=== PATIENT | male | born 1965 | race Caucasian/White ===

== ENCOUNTER → 2020-10-14 | Outpatient (CLI) | payer BC ==
--- NOTE | 2020-10-14 09:54 | Diagnostic Imaging Report ---
PROCEDURE: MR imaging cervical spine without contrast. TECHNIQUE: Multiplanar, multisequence MR imaging of the cervical spine was performed without contrast. INDICATION: Decreased range of motion in the left upper extremity. FINDINGS: The cervical spinal cord has normal volume, morphology, and signal intensity. No paraspinal mass, hemorrhage, or fluid collection. The ligamentous structures are intact. The vertebral statures are normal. The marrow signal intensity is normal. The alignment is anatomic. The craniocervical relationship at the C1-C2 level appears normal without stenosis. C2-C3: Mild anterior osteophyte/disc material at this level is present but no canal or foraminal stenosis. C3-C4: There is disc desiccation, stature loss, and bulging anterior greater than posterior disc material and uncovertebral joint spurring resulting in mild left foraminal stenosis. C4-C5: Disc desiccation, stature loss, bulge, and endplate osteophytes result in a moderate magnitude of canal stenosis with moderate severity bi-foraminal narrowing. No cord compression. C5-C6: Osteophyte/disc material, anterior greater than posterior, is present. There is hypertrophic facet arthrosis with uncovertebral joint spurring. The constellation of findings results in a moderate degree of bi-foraminal narrowing and mild to moderate canal stenosis. C6-C7: There is no substantial canal, foraminal, or recess stenosis. C7-T1: This level and disc are normal. IMPRESSION: Mid to lower cervical spondylosis and facet arthrosis with multilevel mild to moderate canal and foraminal stenoses. Normal cord. Normal alignment. No acute bony abnormality. Dictated by: Dictated on workstation # [id number]
== END ==
LOC: RAD 08:45
PROVIDERS: ATTEND Nurse Practitioner Family
DX: M47.22 Other spondylosis with radiculopathy, cervical region (principal); M50.11 Cervical disc disorder with radiculopathy, high cervical region; M50.121 Cervical disc disorder at C4-C5 level with radiculopathy; M48.02 Spinal stenosis, cervical region; M25.78 Osteophyte, vertebrae
CPT/HCPCS: 72141

== ENCOUNTER → 2020-10-23 | Outpatient (CLI) | payer BC ==
--- NOTE | 2020-10-23 12:06 | Diagnostic Imaging Report ---
PROCEDURE: MRI left upper extremity without contrast. TECHNIQUE: Multiplanar, multisequence non contrast-enhanced MRI of the left upper extremity was accomplished. INDICATION: Shoulder pain, unable to raise shoulder. COMPARISON: There are no prior studies available for comparison. FINDINGS: On the STIR coronal series, there are small areas of increased signal within the substance of the rotator cuff. These findings are more likely due to tendinosis than to a tear. The supraspinous muscle itself is not retracted or bunched. There is considerable hypertrophy of the acromioclavicular joint. This does result in some narrowing of the outlet for the supraspinous muscle. There is also a small amount of fluid in the subacromial bursa and this does suggest an element of mild bursitis is present. The biceps tendon and the subscapularis tendon are intact. The labrum is thinned centrally and probably slightly torn on a degenerative basis. There is no acute labral tear identified. There is no evidence for a joint effusion. There is no abnormal signal arising from the osseous structures to suggest bone edema or a fracture. IMPRESSION: 1. The small areas of altered signal within the rotator cuff are more likely due to tendinosis than to a partial tear. The supraspinous muscle is not retracted or bunched. 2. There is considerable hypertrophy of the acromioclavicular joint and this does result in some narrowing of the outlet for the supraspinous muscle. The fluid in the subacromial bursa also suggests an element of mild bursitis to be present. 3. The labrum is somewhat thinned centrally and is probably slightly torn on a degenerative basis. For the most part, the labrum seems to be intact. 4. There is no acute bony abnormality identified. Dictated by: Dictated on workstation # [id number]
== END ==
LOC: RAD 09:23
PROVIDERS: ATTEND Nurse Practitioner Family
DX: S46.012D Strain of muscle(s) and tendon(s) of the rotator cuff of left shoulder, subsequent encounter (principal); X58.XXXD Exposure to other specified factors, subsequent encounter
CPT/HCPCS: 73221

== ENCOUNTER 2021-12-26 11:40 | Inpatient (IN) | payer BC ==
[~2021-12-26] VITALS: Ht 187.9 cm; Wt 127.0 kg
[2021-12-26 12:43] LABS: BASOPHILS % (AUTO) 0 % (0-10); EOSINOPHILS # (AUTO) 0.2 10^3/uL (0.0-0.3); EOSINOPHILS % (AUTO) 1 % (0-10); HEMATOCRIT 38 % (40-54); HEMOGLOBIN 13.1 g/dL (13.3-17.7); LYMPHOCYTES # (AUTO) 1.2 10^3/uL (1.0-4.0); LYMPHOCYTES % (AUTO) 9 % (12-44); MEAN CORPUSCULAR HEMOGLOBIN 30 pg (25-34); MEAN CORPUSCULAR HGB CONC 34 g/dL (32-36); MEAN CORPUSCULAR VOLUME 88 fL (80-99); MEAN PLATELET VOLUME 10.1 fL (9.0-12.2); MONOCYTES # (AUTO) 1.1 10^3/uL (0.0-1.0); MONOCYTES % (AUTO) 8 % (0-12); NEUTROPHILS # (AUTO) 10.6 10^3/uL (1.8-7.8); NEUTROPHILS % (AUTO) 81 % (42-75); PLATELET COUNT 274 10^3/uL (130-400); WHITE BLOOD COUNT 13.1 10^3/uL (4.3-11.0)
--- NOTE | 2021-12-26 12:53 | ED General ---
General Chief Complaint: Skin/Wound Problems Stated Complaint: L FOOT CELLULITIS Source of Information: Patient Exam Limitations: No Limitations History of Present Illness Date Seen by Provider: Dec 26, 2021 Time Seen by Provider: 11:46 Initial Comments Here with left foot cellulitis from wound to the great toe that is on the medial aspect and on the volar aspect. Seen by Dr. Otto earlier this week and it has gotten worse despite oral antibiotics. Went to [place] today for evaluation and they transferred him here. He did come by POV. Denies fever chills. Denies nausea, vomiting or diarrhea. He did not have the labs drawn there. Case was discussed with Dr. Otto who will see him in the hospital as well as Dr. Ndiaye who will admit that patient does not have labs done yet so we will do that here. He denies other concerns. Does have history of significant cellulitis requiring ICU stay to the right foot and leg a year ago. He states this 1 was not as bad. He is accompanied by his . Timing/Duration: 1 Week, Getting Worse Severity: Moderate Modifying Factors: improves with Immobilization, improves with Rest Associated Systoms: No Chest Pain, No Cough, No Fever/Chills, No Nausea/Vomiting, No Shortness of Air, No Weakness Allergies and Home Medications Allergies Coded Allergies: No Known Drug Allergies (Unverified , 12/26/21) Patient Home Medication List Home Medication List Reviewed: Yes Review of Systems Review of Systems Constitutional: see HPI; No chills, No fever EENTM: No nose congestion, No throat pain Respiratory: No cough, No short of breath Cardiovascular: No chest pain, No edema Gastrointestinal: No nausea, No vomiting Musculoskeletal: joint pain, muscle pain Skin: change in color, lesions Psychiatric/Neurological: No Symptoms Reported All Other Systems Reviewed Negative Unless Noted: Yes Past Zxlokbl-Umqzfs-Abdlfw Hx Patient Social History Tobacco Use?: No Substance use?: No Alcohol Use?: No Past Medical History Surgeries: Yes (Ablation) Orthopedic Respiratory: No Cardiac: Yes Atrial Fibrillation, Hypertension Neurological: No Genitourinary: No Gastrointestinal: No Musculoskeletal: Yes Endocrine: Yes Diabetes, Insulin dep Family Medical History Reviewed Nursing Family Hx No Pertinent Family Hx Physical Exam-Suspected Sepsis Physical Exam Vital Signs Capillary Refill : Height, Weight, BMI Height: '" Weight: lbs. oz. kg; BMI Method: General Appearance: No Apparent Distress, WD/WN HEENT: PERRL/EOMI, Pharynx Normal Neck: Non Tender, Supple Respiratory: Lungs Clear, Normal Breath Sounds Cardiovascular: Regular Rate, Rhythm Gastrointestinal: Non Tender, Soft Back: Normal Inspection, No CVA Tenderness, No Vertebral Tenderness Extremity: Normal Range of Motion, Non Tender, Other (Redness, swelling and wounds to the left foot as described below) Neurologic/Psychiatric: Alert, Normal Mood/Affect Skin: warm/dry, ulcerations (Left great toe), other (Left great toe with wound to the medial aspect and on the sole at the area of the distal phalanx. Purulent drainage from the medial wound. Redness and swelling extends from toe to the ankle over the medial aspect and dorsal aspect of the foot. Not significantly tender.) Progress/Results/Core Measures Suspected Sepsis SIRS Temperature: Pulse: Respiratory Rate: Laboratory Tests 12/26/21 12:30: White Blood Count 13.1H Blood Pressure / Mean: Laboratory Tests 12/26/21 12:30: Creatinine 0.78, INR Comment 1.2, Platelet Count 274, Total Bilirubin 1.4H Results/Orders Lab Results Laboratory Tests Test 12/26/21 12:30 Range/Units White Blood Count 13.1 H 4.3-11.0 10^3/uL Red Blood Count 4.39 4.30-5.52 10^6/uL Hemoglobin 13.1 L 13.3-17.7 g/dL Hematocrit 38 L 40-54 % Mean Corpuscular Volume 88 80-99 fL Mean Corpuscular Hemoglobin 30 25-34 pg Mean Corpuscular Hemoglobin Concent 34 32-36 g/dL Red Cell Distribution Width 13.2 10.0-14.5 % Platelet Count 274 130-400 10^3/uL Mean Platelet Volume 10.1 9.0-12.2 fL Immature Granulocyte % (Auto) 1 % Neutrophils (%) (Auto) 81 H 42-75 % Lymphocytes (%) (Auto) 9 L 12-44 % Monocytes (%) (Auto) 8 0-12 % Eosinophils (%) (Auto) 1 0-10 % Basophils (%) (Auto) 0 0-10 % Neutrophils # (Auto) 10.6 H 1.8-7.8 10^3/uL Lymphocytes # (Auto) 1.2 1.0-4.0 10^3/uL Monocytes # (Auto) 1.1 H 0.0-1.0 10^3/uL Eosinophils # (Auto) 0.2 0.0-0.3 10^3/uL Basophils # (Auto) 0.0 0.0-0.1 10^3/uL Immature Granulocyte # (Auto) 0.1 0.0-0.1 10^3/uL Prothrombin Time 15.4 H 12.2-14.7 SEC INR Comment 1.2 0.8-1.4 Activated Partial Thromboplast Time 40 H 24-35 SEC Sodium Level 138 135-145 MMOL/L Potassium Level 3.7 3.6-5.0 MMOL/L Chloride Level 102 98-107 MMOL/L Carbon Dioxide Level 22 21-32 MMOL/L Anion Gap 14 5-14 MMOL/L Blood Urea Nitrogen 9 7-18 MG/DL Creatinine 0.78 0.60-1.30 MG/DL Estimat Glomerular Filtration Rate 105 BUN/Creatinine Ratio 12 Glucose Level 247 H 70-105 MG/DL Calcium Level 9.3 8.5-10.1 MG/DL Corrected Calcium 9.5 8.5-10.1 MG/DL Total Bilirubin 1.4 H 0.1-1.0 MG/DL Aspartate Amino Transf (AST/SGOT) 13 5-34 U/L Alanine Aminotransferase (ALT/SGPT) 25 0-55 U/L Alkaline Phosphatase 78 40-136 U/L C-Reactive Protein High Sensitivity 28.50 H 0.00-0.50 MG/DL Total Protein 7.1 6.4-8.2 GM/DL Albumin 3.8 3.2-4.5 GM/DL Procalcitonin 0.20 H <0.10 NG/ML My Orders Orders - BARBARA OLIVO MD Cbc With Automated Diff (12/26/21 11:45) Comprehensive Metabolic Panel (12/26/21 11:45) Blood Culture (12/26/21 11:45) Sputum Culture (12/26/21 11:45) Protime With Inr (12/26/21 11:45) Partial Thromboplastin Time (12/26/21 11:45) Ed Iv/Invasive Line Start (12/26/21 11:45) Vital Signs Adult Sepsis Patie Q15M (12/26/21 11:45) Remove Rings In Anticipation O (4/10/22 11:45) Lactic Acid Analyzer (12/26/21 11:45) Hs C Reactive Protein (12/26/21 11:45) Procalcitonin (Pct) (12/26/21 11:45) Foot, Left, 3 Views (12/26/21 12:35) Wound Culture (12/26/21 12:30) Piperacillin Sodium/Tazobactam (Zosyn Vi (12/26/21 14:00) Vancomycin Injection (Vancomycin Injecti (12/26/21 14:00) Ed Admission (Communication) (12/26/21 13:58) Vital Signs/I&O Capillary Refill : Progress Note : Progress Note Seen and evaluated. Sepsis protocol initiated. Wound culture from left great toe. X-ray left foot ordered. Monitor patient. 1353: I did discuss the case with Dr. Ndiaye and discussed findings up to now. We will initiate Zosyn 4.5 g IV as well as vancomycin 2 g IV and admit. She will discuss case with Dr. Otto. Findings and concerns discussed with patient and family who agree with plan. Diagnostic Imaging Diagonstic Imaging: Xray Plain Films/CT/US/NM/MRI: other Comments [facility], [place] NAME: AMBER MEMBR[facility] REC#: [id number] PT STATUS: REG ER : 05/27/1970 PHYSICIAN: BARBARA OLIVO MD ADMIT DATE: 12/26/21/ER Draft Date of Exam:12/26/21 CT HEAD WO-R/O STROKE PROCEDURE: CT head wo r/o stroke. TECHNIQUE: Multiple contiguous axial images were obtained through the brain without the use of intravenous contrast. Auto Exposure Controls were utilized during the CT exam to meet ALARA standards for radiation dose reduction. INDICATION: Stroke FINDINGS: The ventricles and sulci are within normal limits. There is no hydrocephalus or cerebral edema. There is no midline shift or mass effect. There is no intracranial mass, hemorrhage, or extra-axial fluid collection. The visualized paranasal sinuses and mastoid air cells are clear. There are no regional areas of decreased attenuation appreciated to suggest an acute CVA. IMPRESSION: No acute intracranial abnormality. Dictated on workstation # [id number] Dict: 12/26/21 1247 Trans: 12/26/21 1248 [facility] [id number] Interpreted by: GREG GONZALES MD Electronically signed by: Departure Communication (Admissions) Time/Spoke to Admitting Phy: 13:53 Impression Primary Impression: Diabetic foot ulcer Qualified Codes: E10.621 - Type 1 diabetes mellitus with foot ulcer; L97.522 - Non-pressure chronic ulcer of other part of left foot with fat layer exposed Additional Impression: Sepsis Qualified Codes: A41.9 - Sepsis, unspecified organism Disposition: ADMITTED INPATIENT Condition: Stable Admissions Decision to Admit Reason: Admit from ER (General) Decision to Admit/Date: Dec 26, 2021 Time/Decision to Admit Time: 13:53 Departure-Patient Inst. Referrals: SILVIA PELAEZ DO (PCP/Family) Primary Care Physician BARBARA OLIVO MD Dec 26, 2021 12:53
[2021-12-26 12:55] LABS: ALBUMIN 3.8 GM/DL (3.2-4.5); POTASSIUM 3.7 MMOL/L (3.6-5.0)
[2021-12-26 12:56] LABS: CALCIUM 9.3 MG/DL (8.5-10.1)
[2021-12-26 12:58] LABS: INR 1.2 (0.8-1.4); PROTHROMBIN TIME PATIENT 15.4 SEC (12.2-14.7); TOTAL PROTEIN 7.1 GM/DL (6.4-8.2)
[2021-12-26 12:59] LABS: BILIRUBIN,TOTAL 1.4 MG/DL (0.1-1.0)
[2021-12-26 13:01] LABS: CREATININE SERUM 0.78 MG/DL (0.60-1.30)
--- NOTE | 2021-12-26 13:11 | Diagnostic Imaging Report ---
INDICATION: Pain. 3 views of the left foot were obtained. FINDINGS: The alignment is normal. There are degenerative changes. No fracture or dislocation. Soft tissues are unremarkable. IMPRESSION: Degenerative changes, however no acute fracture or dislocation. Dictated by: Dictated on workstation # [id number]
[2021-12-26] MEDS ORDERED: PIPERACILLIN SODIUM/TAZOBACTAM 4.5 GM in NS (IVPB) 100 ML IV ONE (14:00)
[2021-12-26] MEDS ORDERED: VANCOMYCIN INJECTION 1,000 MG in NS (IVPB) 250 ML IV SCH (14:00)
[2021-12-26] MEDS ORDERED: VANCOMYCIN INJECTION 2,000 MG in NS IV 500 ML 500 ML IV SCH (14:15)
[2021-12-26] MEDS ORDERED: polyethylene glycoL POWDER 17 GM (MIRALAX) PACK PO PRN (15:15)
[2021-12-26] MEDS ORDERED: ACETAMINOPHEN 325 MG TABLET PO PRN (15:15)
[2021-12-26] MEDS ORDERED: VANCOMYCIN INJECTION 0.1 MG in NS (IVPB) 250 ML IV SCH (15:15)
[2021-12-26] MEDS ORDERED: MELATONIN 3 MG TABLET PO PRN (15:15)
[2021-12-26] MEDS ORDERED: ONDANSETRON 4 MG/2 ML (SDV) Z0FRAN IV PRN (15:15)
[2021-12-26] MEDS ORDERED: CALCIUM CARBONATE 500 MG (TUMS) TAB.CHEW PO PRN (15:15)
[2021-12-26 15:30] VITALS: BP 180/85
[2021-12-26] MEDS ORDERED: AUGMENTIN 875/125 PO (16:02)
[2021-12-26] MEDS ORDERED: CLIN150C20 PO (16:03)
[2021-12-26] MEDS ORDERED: INSU100I23 SQ (16:04)
[2021-12-26] MEDS ORDERED: APIX5TAB PO (16:04)
[2021-12-26] MEDS ORDERED: ATOR80TA76 PO (16:05)
[2021-12-26] MEDS ORDERED: INSU300I SQ (16:07)
[2021-12-26] MEDS ORDERED: GLIP10TA24 PO (16:07)
[2021-12-26] MEDS ORDERED: DILT300C52 PO (16:08)
[2021-12-26] MEDS ORDERED: PREG100C55 PO (16:09)
[2021-12-26] MEDS ORDERED: SITA1TAB2 PO (16:09)
[2021-12-26] MEDS: inSUlin ASPART (NovoLOG) 1 UNIT/0.01 ML (CHARGE PER UNIT) SC SCH ×2 (16:11→20:54)
[2021-12-26] MEDS ORDERED: hydrALAZINE (APESOLINE) 20 MG/ML VIAL IV PRN (18:45)
[2021-12-26 20:00] VITALS: BP 95/72
[2021-12-26] MEDS: PREGABALIN 100 MG (LYRICA) CAPSULE PO SCH (20:54)
[2021-12-26] MEDS: PIPERACILLIN SODIUM/TAZOBACTAM 4.5 GM in NS (IVPB) 100 ML IV SCH (22:39)
[2021-12-27] VITALS (12 sets, daily range): BP systolic 115–177; BP diastolic 70–105
[2021-12-27] MEDS: inSUlin ASPART (NovoLOG) 1 UNIT/0.01 ML (CHARGE PER UNIT) SC SCH ×4 (05:26→20:14)
[2021-12-27] MEDS: inSUlin ASPART (NovoLOG) 1 UNIT/0.01 ML (CHARGE PER UNIT) SQ SCH ×3 (05:26→17:35)
[2021-12-27] MEDS: PIPERACILLIN SODIUM/TAZOBACTAM 4.5 GM in NS (IVPB) 100 ML IV SCH ×3 (05:45→23:17)
[2021-12-27 06:08] LABS: HEMATOCRIT 36 % (40-54); HEMOGLOBIN 12.1 g/dL (13.3-17.7); MEAN CORPUSCULAR HEMOGLOBIN 29 pg (25-34); MEAN CORPUSCULAR HGB CONC 34 g/dL (32-36); MEAN CORPUSCULAR VOLUME 87 fL (80-99); PLATELET COUNT 287 10^3/uL (130-400); WHITE BLOOD COUNT 10.8 10^3/uL (4.3-11.0)
[2021-12-27 06:31] LABS: CALCIUM 8.4 MG/DL (8.5-10.1); CREATININE SERUM 0.82 MG/DL (0.60-1.30); POTASSIUM 3.4 MMOL/L (3.6-5.0)
[2021-12-27] MEDS ORDERED: fentaNYL INJ 100 MCG/2 ML AMP ONE (07:01)
[2021-12-27] MEDS ORDERED: ONDANSETRON 4 MG/2 ML (SDV) Z0FRAN ONE (07:01)
[2021-12-27] MEDS ORDERED: LIDOCAINE PF 2% 5 ML (XYLOCAINE) VIAL ONE (07:01)
[2021-12-27] MEDS ORDERED: proPOfol 200 MG/20 ML (DIPRIVAN) VIAL IV ONE (07:01)
[2021-12-27] MEDS ORDERED: MIDAZOLAM 2 MG/2 ML (VERSED) VIAL ONE (07:01)
--- NOTE | 2021-12-27 07:18 | Progress Note-Pre Operative ---
Pre-Operative Progress Note H&P Reviewed The H&P was reviewed, patient examined and no changes noted. Date Seen by Provider: Dec 27, 2021 Time Seen by Provider: 07:17 Date H&P Reviewed: Dec 27, 2021 Time H&P Reviewed: 07:17 Pre-Operative Diagnosis: Abscess left hallux RIYA VICENTE DPLynnette Dec 27, 2021 07:18
[2021-12-27] MEDS ORDERED: BUPIVACAINE 0.5% 30 ML (SENSORCAINE) VIAL ONE (07:20)
[2021-12-27] MEDS ORDERED: LIDOCAINE 1% INJ 50 ML (XYLOCAINE) VIAL ONE (07:20)
[2021-12-27] MEDS ORDERED: LACTATED RINGERS 1,000 ML IV PRN (07:30)
[2021-12-27] MEDS ORDERED: SEVOFLURANE (ULTANE) 15 ML INHAL SOLN ONE (08:00)
--- NOTE | 2021-12-27 08:03 | Progress Note-Post Operative ---
Post-Operative Progess Note Surgeon (s)/Brand Sales Consultant (s) Surgeon RIYA VICENTE DPM Brand Sales Consultant: none Pre-Operative Diagnosis Abscess left hallux Post-Operative Diagnosis Same Procedure & Operative Findings Date of Procedure 12/27/21 Procedure Performed/Findings Incision and Drainage left hallux (deep tissue) Anesthesia Type General Estimated Blood Loss Estimated blood loss (mL): Minimal Specimens/Packing Specimens Removed none Packing: Iodoform (09/21") RIYA VICENTE DPM Dec 27, 2021 08:03
[2021-12-27] MEDS ORDERED: ONDANSETRON 4 MG/2 ML (SDV) Z0FRAN IVP PRN (08:15)
[2021-12-27] MEDS ORDERED: morphine INJ 10 MG/ML 1ML (SYR OR VIAL) IVP ONE (08:15)
[2021-12-27] MEDS ORDERED: MEPERIDINE (DEMEROL) INJ 50 MG/ML IVP ONE (08:15)
--- NOTE | 2021-12-27 09:13 | Anesthesia-General Post-Op ---
General Patient Condition Mental Status/LOC: Same as Preop Cardiovascular: Satisfactory Nausea/Vomiting: Absent Respiratory: Satisfactory Pain: Controlled Complications: Absent Post Op Complications Complications None Follow Up Care/Instructions Patient Instructions None needed. Anesthesia/Patient Condition Patient Condition Patient is doing well, no complaints, stable vital signs, no apparent adverse anesthesia problems. No complications reported per nursing. KAYODE SNYDER CRNA Dec 27, 2021 09:13
[2021-12-27] MEDS: PREGABALIN 100 MG (LYRICA) CAPSULE PO SCH ×3 (09:42→20:29)
[2021-12-27] MEDS: LACTATED RINGERS 1,000 ML IV SCH ×2 (09:42→13:44)
[2021-12-27] MEDS ORDERED: ACET-2267 PO (09:54)
[2021-12-27] MEDS ORDERED: MULT-974 PO (09:55)
[2021-12-27] MEDS ORDERED: ZINC50TA11 PO (09:55)
[2021-12-27] MEDS ORDERED: NF-VITD400 PO (09:55)
[2021-12-27] MEDS ORDERED: ASCO500T71 PO (09:57)
[2021-12-27] MEDS ORDERED: CYAN100T37 PO (09:57)
--- NOTE | 2021-12-27 10:13 | Physical Therapy Progress Note ---
Therapy Progress Note Patient currently up independently in room with surgical shoe in place left foot. Patient declined FWW use for PWB left foot and is walking on his heel. RN is aware. No skilled PT indicated. MARYJANE OLIVARES PT Dec 27, 2021 10:13
--- NOTE | 2021-12-27 11:46 | OPERATIVE REPORT ---
DATE OF SERVICE: 12/27/2021 SURGEON: Katerine Vicente DPM. PREOPERATIVE DIAGNOSIS: Abscess, left hallux. POSTOPERATIVE DIAGNOSIS: Abscess, left hallux. PROCEDURE: Incision and drainage, deep, left hallux. WOUND CLASS: Contaminated. ANESTHESIA: General. HEMOSTASIS: Pneumatic ankle tourniquet at 250 mmHg. INDICATIONS: This 56-year-old male presents with a chronic wound to the left hallux. Over the last several days, the left foot became erythematous and swollen with some pain and drainage. The patient was admitted through the ER, given IV antibiotics. The patient was given conservative and surgical options, he opted for an incision and drainage, which I highly recommended for the patient at this time. DESCRIPTION OF PROCEDURE: The patient was brought back to the operating table, placed in secure supine position. Appropriate timeout was performed. A general anesthetic was then induced. Local anesthetic was also applied to the left lower extremity in a Cabezas block utilizing 16 mL of 1:1 mixture of 1% Xylocaine, 0.5% Marcaine plain. The left foot was prepped and draped. Foot was then prepped and draped in normal sterile manner. The left foot was then elevated, allowed to exsanguinate after which the tourniquet was inflated to 250 mmHg. Attention was then directed to the plantar aspect of left hallux where a quarter-inch diameter partial thickness wound was identified. With debridement into this area, there is tracking of abscess that progressed laterally and superiorly to the lateral aspect of the hallux. Sharp dissection was created along this tract was extended down deep to the inferior aspect of the proximal phalanx. All fibrotic, necrotic and purulent material was debrided as encountered. Swab culture was taken of the deep abscess. The incision was also extended proximally into the first webspace deep into the deep fascia. The area was irrigated thoroughly. The incision was also extended from the plantar ulcer to the medial aspect of the toe. This did not seem to probe as deeply and there was no purulence or necrotic tissue identified. Next power irrigation was performed utilizing 3000 mL of normal saline. The wound was then packed with quarter-inch iodoform and left open. The tourniquet was released, and no active bleeders were identified. The wound was dressed with 4 x 4's, sterile Kerlix and a surgical splint shoe. The patient is to be nonweightbearing on the left lower extremity with heel contact only for transfers and balance. He is to have dressing change daily. Continue with IV antibiotics. Job ID: [id number] DocumentID: [id number] Dictated Date: 12/27/2021 08:15:52 Summer School Coordinator Date: 12/27/2021 11:45:36 Dictated By: KATERINE VICENTE DPM
[2021-12-27] MEDS ORDERED: VANCOMYCIN 1,750 MG/NS 500 ML IVPB IV SCH ×2 (15:00)
--- NOTE | 2021-12-27 15:19 | History & Physical-Hospitalist ---
History of Present Illness HPI/Chief Complaint Sean Callahan is a 56 year old male with PMH HTN, T2DM, HLD, AFib, obesity, who presented with a foot wound. This has been present for about 9 months. He has been following with Dr. Otto. He denies fevers and chills. He denies nausea and vomiting. He denies chest pain. He denies shortness of breath. He has been on oral antibiotics for cellulitis but has continued to worsen. He went to the [place] ER and then came to our ER. Source: patient Exam Limitations: no limitations Date Seen 12/27/21 Time Seen by a Provider: 10:05 Attending Physician Ashley Clayton MD PCP Crow Hope DO Referring Physician Date of Admission Dec 26, 2021 at 13:59 Home Medications & Allergies Home Medications Reviewed patient Home Medication Reconciliation performed by pharmacy medication reconciliations marine diesel technician and/or nursing. Patients Allergies have been reviewed. Allergies Allergies Coded Allergies No Known Drug Allergies (Unverified12/26/21) Past Irjhdge-Umqvpa-Tilkjq Hx Patient Social History Tobacco Use?: No Smoking Status: Never a Smoker Use of E-Cig and/or Vaping dev: No Substance use?: No Alcohol Use?: No Pt feels they are or have been: No Current Status Advance Directives: No Communicates: Verbally Primary Language: Bhutanese Preferred Spoken Language: Bhutanese Is interpretation needed?: No Implanted or Applied Medical D: None Past Medical History Surgeries: Orthopedic Currently Using CPAP: Yes Currently Using BIPAP: No Atrial Fibrillation, Hypertension Diabetes, Insulin dep Family Medical History Reviewed Nursing Family Hx No Pertinent Family Hx Review of Systems Constitutional: no symptoms reported EENTM: no symptoms reported Respiratory: no symptoms reported Cardiovascular: no symptoms reported Gastrointestinal: no symptoms reported Genitourinary: no symptoms reported Musculoskeletal: no symptoms reported Skin: change in color, lesions Psychiatric/Neurological: No Symptoms Reported Physical Exam Physical Exam Vital Signs Vital Signs - First Documented 12/26/21 12/26/21 12:05 14:45 Temp 37.0 Pulse 93 Resp 20 B/P (MAP) 164/101 (122) Pulse Ox 96 O2 Delivery Room Air Capillary Refill : Less Than 3 Seconds Height, Weight, BMI Height: '" Weight: lbs. oz. kg; 35.97 BMI Method: General Appearance: No Apparent Distress, Obese HEENT: PERRL/EOMI, Pharynx Normal Neck: Normal Inspection, Supple Respiratory: Lungs Clear, Normal Breath Sounds, No Respiratory Distress Cardiovascular: Regular Rate, Rhythm, No Edema, No Murmur Gastrointestinal: Normal Bowel Sounds, Non Tender, Soft Extremity: Non Tender, No Pedal Edema, Other (left foot bandaged with boot in place) Neurologic/Psychiatric: Alert, Oriented x3, No Motor/Sensory Deficits, Normal Mood/Affect Skin: Warm/Dry Results Results/Procedures Labs Laboratory Tests 12/26/21 12:30 12/27/21 05:43 Patient resulted labs reviewed. Imaging: Reviewed Imaging Report Assessment/Plan Admission Diagnosis Sepsis due to diabetic foot wound Admission Status: Inpatient Order (span 2 midnights) Reason for Inpatient Admission: I&D IV antibiotics Assessment and Plan T2DM with diabetic foot ulcer and abscess Podiatry consulted I&D performed 12/27 IV antibiotics Continue insulin regimen HTN HLD AFib Continue home meds Obesity Clinically significant, no acute management needs DVT prophylaxis: Lovenox Diagnosis/Problems Diagnosis/Problems (1) T2DM (type 2 diabetes mellitus) Status: Acute Qualifiers: Diabetes mellitus terminal operator insulin use: with fpc use Diabetes mellitus complication status: with skin complications Diabetes mellitus complication detail: with foot ulcer Qualified Codes: E11.621 - Type 2 diabetes mellitus with foot ulcer; L97.509 - Non-pressure chronic ulcer of other part of unspecified foot with unspecified severity; Z79.4 - assisted (current) use of insulin (2) Obesity Status: Chronic (3) HTN (hypertension) Status: Chronic (4) HLD (hyperlipidemia) Status: Chronic (5) Afib Status: Chronic ASHLEY CLAYTON MD Dec 27, 2021 15:19
[2021-12-27] MEDS ORDERED: glipiZIDE XL 5 MG (GLUCOTROL XL) TAB PO NR (18:30)
[2021-12-28] VITALS (7 sets, daily range): BP systolic 136–188; BP diastolic 75–98
[2021-12-28] MEDS: LACTATED RINGERS 1,000 ML IV SCH ×2 (00:53→09:22)
[2021-12-28] MEDS: PIPERACILLIN SODIUM/TAZOBACTAM 4.5 GM in NS (IVPB) 100 ML IV SCH ×2 (05:34→14:30)
[2021-12-28] MEDS: inSUlin ASPART (NovoLOG) 1 UNIT/0.01 ML (CHARGE PER UNIT) SC SCH ×3 (05:37→16:26)
[2021-12-28] MEDS: inSUlin ASPART (NovoLOG) 1 UNIT/0.01 ML (CHARGE PER UNIT) SQ SCH ×3 (06:24→16:26)
[2021-12-28] MEDS: PREGABALIN 100 MG (LYRICA) CAPSULE PO SCH ×2 (08:19→14:30)
[2021-12-28] MEDS: glipiZIDE XL 5 MG (GLUCOTROL XL) TAB PO SCH ×2 (09:22→18:05)
--- NOTE | 2021-12-28 12:22 | Podiatry Progress Note ---
Standard Progress Note Progress Notes/Assess & Plan Date Seen by a Provider: Dec 28, 2021 Time Seen by a Provider: 12:16 Progress/Assessment & Plan POD #1 The patient denies F/C/N/V. No pain to the left foot. Deep wound cultures indicate MSSA so far. This in consistent with cultures taken in the ER two days ago which was MSSA. The dressing is intact left foot with minimal drainage. The wound to the left hallux is viable with no necrosis, no active exudate, no proximal streaking. There is some erythema and edema to the left hallux, but both are improved since yesterday. S/P: Incision and drainage, left hallux Sterile dressing change with Iodoform performed, left foot. I will arrange for daily dressing changes. The patient can be discharge with oral antibiotics. He is to be non-weight bearing left foot. Final Diagnosis Abscess, cellulitis left foot RIYA VICENTE DPM Dec 28, 2021 12:22
[2021-12-28] MEDS ORDERED: AMOX1TAB12 PO (12:46)
[2021-12-28] MEDS ORDERED: TROUGH ORDER-PHARMACY XX NR (14:00)
[2021-12-28] MEDS ORDERED: LISI20TA26 PO (16:17)
[2021-12-28] MEDS ORDERED: lisINopril 20 MG (PRINIVIL) TABLET ONE (16:20)
[2021-12-28] MEDS ORDERED: lisINopril 20 MG (PRINIVIL) TABLET PO NR (16:30)
--- NOTE | 2021-12-28 16:30 | Discharge Summary ---
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 He was started on broad spectrum antibiotics. Podiatry was consulted and performed I&D. His culture returned with MSSA and he was transitioned to Augmentin. He will complete a 10 day course as an outpatient. He will follow in the podiatry clinic with Dr. Otto for wound care. His course was complicated by hypertension and he was started on Lisinopril. He was discharged home in stable condition. Labs and Pending Lab Test: Laboratory Tests 12/27/21 20:05: Glucometer 168H 12/28/21 04:41: Glucometer 185H 12/28/21 11:21: Glucometer 281H 12/28/21 16:08: Glucometer 304H Microbiology 12/27/21 Gram Stain - Final, Resulted 12/27/21 Anaerobic Culture - Preliminary, Resulted Culture In Progress 12/27/21 Surgical Culture - Preliminary, Resulted Staphylococcus aureus 12/26/21 Blood Culture - Preliminary, Resulted No growth Home Meds Active Lisinopril 20 Mg Tablet 20 Mg PO DAILY 90 Days Amox Tr-K Clv 875-125 mg Tab (Amoxicillin/Potassium Clav) 1 Each Tablet 1 Each PO BID 5 Days TAKE TWICE DAILY FOR 10 DAYS TOTAL Reported Vitamin B-12 (Cyanocobalamin) 100 Mcg Tablet 100 Mcg PO DAILY Vitamin C (Ascorbic Acid) 500 Mg Tab.chew 500 Mg PO DAILY Vitamin D3 (Vitamin D) 10 Mcg Tablet 400 Mcg PO DAILY Multi-Vitamin Daily (Multivitamin) 1 Each Tablet 1 Each PO DAILY Zinc (Zinc Gluconate) 50 Mg Tablet 50 Mg PO DAILY Tylenol Extra Strength (Acetaminophen) 500 Mg Tablet 1,000-1,500 Mg PO Q8H PRN TAKES 2 TO 3 (500MG) TABS Janumet 50-500 mg Tablet (Sitagliptin Phos/Metformin HCl) 1 Tab Tablet 1 Tab PO BID Pregabalin 100 Mg Capsule 100 Mg PO TID Diltiazem 24Hr ER (Diltiazem HCl) 300 Mg Cap.er.24h 300 Mg PO DAILY Glipizide ER (Glipizide) 10 Mg Tab.er.24 10 Mg PO BID Toujeo Solostar (Insulin Glargine,Hum.rec.anlog) 300 Unit/1 Ml Insuln.pen 42 Unit SQ HS Atorvastatin Calcium 80 Mg Tablet 80 Mg PO HS Humalog Kwikpen (Insulin Lispro) 100 Unit/1 Ml Insuln.pen 6 Unit SQ AC Eliquis (Apixaban) 5 Mg Tablet 5 Mg PO BID [Augmentin 875/125] 1 Tab PO BID FILLED 12-24-2021 #14/7 DAY SUPPLY Assessment/Pt Instructions See instructions Discharge Planning: >30 minutes discharge planning Discharge Instructions Discharge Diet: ADA Diet Activity as Tolerated: Yes Consultations Podiatry Discharge Physical Examination Vital Signs Vital Signs Date Time Temp Pulse Resp B/P (MAP) Pulse Ox O2 Delivery O2 Flow Rate FiO2 12/28/21 11:28 36.3 87 18 168/98 (121) 97 Room Air 12/27/21 08:40 1 General Appearance: No Apparent Distress, Obese Respiratory: Lungs Clear, No Respiratory Distress Cardiovascular: Regular Rate, Rhythm, No Murmur Gastrointestinal: Normal Bowel Sounds, Soft Extremity: No Pedal Edema, Other (left foot bandaged with boot) Skin: Normal Color, Warm/Dry Neurologic/Psychiatric: Alert, Normal Mood/Affect Allergies: Coded Allergies: No Known Drug Allergies (Unverified , 12/26/21) Discharge Summary Date of Admission Dec 26, 2021 at 13:59 Date of Discharge Discharge Date: Dec 28, 2021 Discharge Time: 16:29 Admission Diagnosis Sepsis due to diabetic foot wound Consults/Procedures Consulations Podiatry Procedures I&D Discharge Diagnosis Sepsis due to diabetic foot ulcer and abscess (1) T2DM (type 2 diabetes mellitus) Status: Acute Qualifiers: Qualified Codes: E11.621 - Type 2 diabetes mellitus with foot ulcer; L97.509 - Non-pressure chronic ulcer of other part of unspecified foot with unspecified severity; 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
== END 2021-12-28 18:35 | disposition home or self-care (01) | DRG 872 ==
LOC: EDUNIT# 11:40 → ER 11:42 → 4TH 13:59
PROVIDERS: ADMIT Family Medicine; ATTEND Internal Medicine
PROC: 0J9R0ZZ Drainage of Left Foot Subcutaneous Tissue and Fascia, Open Approach (ICD-10-PCS; principal; 2021-12-27 07:21)
DX: A41.01 Sepsis due to Methicillin susceptible Staphylococcus aureus (principal); L02.612 Cutaneous abscess of left foot; L03.116 Cellulitis of left lower limb; E11.621 Type 2 diabetes mellitus with foot ulcer; L97.529 Non-pressure chronic ulcer of other part of left foot with unspecified severity; L03.032 Cellulitis of left toe; I48.91 Unspecified atrial fibrillation; I10 Essential (primary) hypertension; E78.5 Hyperlipidemia, unspecified; E66.9 Obesity, unspecified; Z79.4 Long term (current) use of insulin; Z68.36 Body mass index [BMI] 36.0-36.9, adult
CPT/HCPCS: 36415; 73630; 80048; 80053; 82947; 83605; 84145; 85025; 85027; 85610; 85730; 86141; 87040; 87070; 87075; 87077; 87081; 87186; 87205